=== PATIENT | male | born 2000 | race Two or more races ===

== ENCOUNTER → 2023-10-28 | Emergency (ER) | payer OTHER ==
[~2023-10-28] VITALS: Ht 170.2 cm; Wt 52.1 kg
[2023-10-28 18:50] VITALS: BP 140/81; PULSE 110; RESP 18; O2SAT 98
== END | disposition left against medical advice (07) ==
LOC: ER 18:44
DX: S01.112A Laceration without foreign body of left eyelid and periocular area, initial encounter (principal); M95.0 Acquired deformity of nose; Z53.21 Procedure and treatment not carried out due to patient leaving prior to being seen by health care provider; Y04.2XXA Assault by strike against or bumped into by another person, initial encounter; Y93.89 Activity, other specified; Y92.89 Other specified places as the place of occurrence of the external cause; Y99.8 Other external cause status